=== PATIENT | female | born 2000 | race Caucasian/White ===

== ENCOUNTER 2024-05-05 00:01 | Emergency (ER) | payer SELFPAY ==
[2024-05-05 00:07] VITALS: BMI 28.3
[2024-05-05] MEDS ORDERED: FAMOTIDINE 20 MG/50 ML IVPB 20 MG/50 ML MG IVPB ONE (01:01)
[2024-05-05] MEDS ORDERED: ONDANSETRON 4 MG/2 ML VIAL ONE (01:01)
[2024-05-05] MEDS ORDERED: MAG HYDROX/AL HYDROX/SIMETH 30 ML UNIT-DOSE CUP ONE (01:01)
[2024-05-05] MEDS: MAG HYDROX/AL HYDROX/SIMETH -MYLANTA- ORAL SUSPENSION PO ONE (01:12)
[2024-05-05] MEDS: FAMOTIDINE 20 MG/50 ML IVPB 20 MG/50 ML MG IVPB ONE (01:12)
[2024-05-05] MEDS: ONDANSETRON 4 MG/2 ML VIAL IVPB ONE (01:13)
[2024-05-05 01:20] LABS: BASO % 0.1 % (0-2.0); EOS % 0.2 % (0-4.5); HEMATOCRIT 40.4 % (32.4-45.2); HEMOGLOBIN 13.9 GM/dL (10.7-15.3); LYMPH % 9.3 % (8-40); MCH 30.8 pg (25.7-33.7); MCHC 34.3 g/dl (32.0-36.0); MEAN CELL VOLUME 89.8 fl (80-96); MEAN PLT VOLUME 8.2 fl (7.5-11.1); MONO % 4.2 % (3.8-10.2); NEUT % 86.2 % (42.8-82.8); PLATELET COUNT 386 10^3/uL (134-434); RBC 4.49 M/mm3 (3.60-5.2); RDW 13.2 % (11.6-15.6); WHITE BLOOD COUNT 12.4 K/mm3 (4.0-10.0)
[2024-05-05 01:45] LABS: CALCIUM 9.5 mg/dL (8.5-10.1)
[2024-05-05 01:46] LABS: ALBUMIN 4.4 g/dl (3.4-5.0); BLOOD UREA NITROGEN 8.8 mg/dL (7-18)
[2024-05-05 01:48] LABS: CREATININE 0.7 mg/dL (0.55-1.3)
[2024-05-05 01:50] LABS: TOT PROT 8.6 g/dl (6.4-8.2)
[2024-05-05] MEDS ORDERED: ACETAMINOPHEN INJECTION 100 ML IVPB ONE ×2 (01:54→08:09)
[2024-05-05 01:57] LABS: EPI CELLS >36 /uL (0-25.1); HYALINE CASTS 1 /uL (0-3.1); PH,URINE >= 9.0 (5.0-8.0); URINE APPEARANCE TURBID; URINE BACTERIA 2384 /uL (0-1359); URINE BILIRUBIN NEGATIVE (NEGATIVE); URINE COLOR YELLOW; URINE GLUCOSE (UA) NEGATIVE (NEGATIVE); URINE KETONE TRACE (NEGATIVE); URINE LEUK ESTERASE NEGATIVE (NEGATIVE); URINE NITRITE NEGATIVE (NEGATIVE); URINE PROTEIN 1+ (NEGATIVE); URINE RBC 36 /uL (0-23.9); URINE WBC 17 /uL (0-25.8)
[2024-05-05] MEDS: ACETAMINOPHEN 1000 MG/100 ML BAG IVPB ONE ×2 (01:57→08:09)
[2024-05-05 02:44] LABS: HCG,QUALITATIVE URINE Negative
[2024-05-05 08:50] VITALS: BP 103/78; PULSE 79; RESP 18; TEMP 98
== END 2024-05-05 09:20 | disposition home or self-care (01) ==
LOC: JER 00:01
PROC: 3E033GC Introduction of Other Therapeutic Substance into Peripheral Vein, Percutaneous Approach (ICD-10-PCS; principal; 2024-05-05)
PROC: 3E033GC Introduction of Other Therapeutic Substance into Peripheral Vein, Percutaneous Approach (ICD-10-PCS; 2024-05-05)
PROC: 3E033NZ Introduction of Analgesics, Hypnotics, Sedatives into Peripheral Vein, Percutaneous Approach (ICD-10-PCS; 2024-05-05)
PROC: 3E033NZ Introduction of Analgesics, Hypnotics, Sedatives into Peripheral Vein, Percutaneous Approach (ICD-10-PCS; 2024-05-05)
DX: R10.13 Epigastric pain (principal); R11.0 Nausea
CPT/HCPCS: 36415; 76705-TC; 80053; 81003; 83690; 84703; 85025; 99284-25; J0131